=== PATIENT | male | born 1950 | race Caucasian/White ===

== ENCOUNTER 2017-09-03 11:35 | Emergency (ER) | payer MEDICARE, OTHER ==
[~2017-09-03] VITALS: Ht 167.6 cm; Wt 93.2 kg
[~2017-09-03 11:35] MED LIST: AMLO10TA55 PO; ASPI81TA42 PO; CIP750 PO; FLUT16H NASAL; IPRAHFA IH; LISI-618 PO; MULT1TAB70 PO; TRIH5TAB2 PO; ZOLP5 PO
[2017-09-03 11:54] VITALS: BP 161/116
[2017-09-03] MEDS ORDERED: HALO5TAB2 PO (11:59)
[2017-09-03] MEDS ORDERED: TRAZ-147 PO (11:59)
== END 2017-09-03 14:54 | disposition home or self-care (01) ==
LOC: EMS 11:36
DX: J21.9 Acute bronchiolitis, unspecified (principal); J98.11 Atelectasis; F17.200 Nicotine dependence, unspecified, uncomplicated; I10 Essential (primary) hypertension; F20.9 Schizophrenia, unspecified; Z79.899 Other long term (current) drug therapy
CPT/HCPCS: 71046; 99284

== ENCOUNTER 2022-11-30 10:58 | Emergency (ER) | payer MEDICARE, OTHER ==
[~2022-11-30] VITALS: Ht 167.6 cm; Wt 59.0 kg
[~2022-11-30 10:58] MED LIST changes: -AMLO10TA55 PO; -ASPI81TA42 PO; -CIP750 PO; -FLUT16H NASAL; +HALO5TAB2 PO; -IPRAHFA IH; -LISI-618 PO; -MULT1TAB70 PO; +TRAZ-257 PO; -TRIH5TAB2 PO; -ZOLP5 PO
[2022-11-30] MEDS ORDERED: BENZ0.5T49 PO (11:05)
[2022-11-30] MEDS ORDERED: ONDANSETRON HCL 4 MG/2 ML VIAL IVP ONE (11:45)
[2022-11-30] MEDS ORDERED: MORPHINE SULFATE 2 MG/ML SYRINGE IVP ONE (11:45)
[2022-11-30] MEDS ORDERED: SODIUM CHLORIDE 0.9% 1,000 ML IV ONE ×2 (11:45→12:45)
[2022-11-30 12:03] LABS: BASOPHILS % (AUTO) 0.3 % (0.0-2.0); EOSINOPHILS % (AUTO) 0.4 % (1.0-6.0); HEMATOCRIT 51.5 % (41-53); HEMOGLOBIN 17.3 g/dL (13.5-17.5); LYMPHOCYTES # (AUTO) 1.1 K/uL (1.0-4.8); MEAN CORPUSCULAR HEMOGLOBIN 31.8 pg (26.0-34.0); MEAN CORPUSCULAR HGB CONC 33.6 G/dL (31.0-37.0); MEAN CORPUSCULAR VOLUME 95 fL (80-100); MONOCYTES # (AUTO) 0.4 K/uL (0.1-1.0); MONOCYTES % (AUTO) 4.6 % (2.0-9.0); NEUTROPHILS # (AUTO) 7.3 K/uL (1.8-7.7); NEUTROPHILS % (AUTO) 81.7 % (40.0-70.0); PLATELET COUNT (AUTO) 176 K/uL (150-450); RED BLOOD CELL COUNT(AUTO) 5.45 MIL/uL (4.50-5.90); RED CELL DISTRIBUTION WIDTH 13.9 % (11.5-14.5); WHITE BLOOD COUNT (AUTO) 8.9 K/uL (4.5-11.0)
[2022-11-30 12:13] LABS: ANION GAP 7 mmol/L (8-16); CALCIUM, TOTAL 9.7 mg/dL (8.8-10.5); CARBON DIOXIDE 32 mmol/L (22-29); CHLORIDE 102 mmol/L (98-107); CREATININE 0.79 mg/dL (0.60-1.30); GLOMERULAR FILTR. RATE CALC > 60 mL/min (>60); GLUCOSE,RANDOM 126 mg/dL (70-110); POTASSIUM 4.5 mmol/L (3.5-5.1); SODIUM SERUM 141 mmol/L (136-145); UREA NITROGEN, BLOOD 10 mg/dL (7-18)
[2022-11-30 12:19] LABS: ALANINE AMINOTRANSFERASE 7 U/L (12-78); ALBUMIN 3.8 g/dL (3.4-5.0); ALKALINE PHOSPHATASE 94 U/L (46-116); ASPARTATE AMINOTRANSFERASE 14 U/L (15-37); BILIRUBIN,TOTAL 0.5 mg/dL (0.1-1.0); LIPASE 18 U/L (16-77); TOTAL PROTEIN, SERUM 7.6 g/dL (6.4-8.2)
[2022-11-30 12:23] LABS: COVID AG,FIA SOURCE NASAL SWAB
[2022-11-30 12:34] LABS: TROPONIN I-HIGH SENSITIVITY 9 ng/L (<76)
[2022-11-30 12:44] LABS: INFLUENZA TYPE A NEGATIVE FOR TYPE A (NEGATIVE); INFLUENZA TYPE B NEGATIVE FOR TYPE B (NEGATIVE); SARS-COV2 (COVID) ANTIGEN,FIA Negative (Negative)
[2022-11-30 13:51] VITALS: BP 149/91; PULSE 148; RESP 16; TEMP 97.9
== END 2022-11-30 14:08 | disposition home or self-care (01) ==
LOC: EMS 11:23
DX: R10.32 Left lower quadrant pain (principal); I10 Essential (primary) hypertension; F20.9 Schizophrenia, unspecified; F17.210 Nicotine dependence, cigarettes, uncomplicated; Z20.822 Contact with and (suspected) exposure to COVID-19
CPT/HCPCS: 99285; 74176; 96374; 96375; 71045; 96361; 87426; 80053; 83690; 84484; 85025; 87804; 36415; 93005; J2270; J2405; J7030